=== PATIENT | female | born 1965 | race Caucasian/White ===

== ENCOUNTER 2020-12-12 15:13 | Outpatient (CLI) | payer BC | END 2020-12-12 15:14 | disposition home or self-care (01) | LOC: BICMRI 15:13 | PROVIDERS: ATTEND Nurse Practitioner Family | DX: M54.12 Radiculopathy, cervical region (principal); M48.02 Spinal stenosis, cervical region; G95.89 Other specified diseases of spinal cord | CPT/HCPCS: 72141 ==

== ENCOUNTER 2020-12-19 12:09 | Outpatient (CLI) | payer BC ==
[2020-12-20 11:13] LABS: SARS-CoV-2 PCR by NAA Not Detected (NotDetected)
== END 2020-12-19 12:10 | disposition home or self-care (01) ==
LOC: LABBT 12:09
PROVIDERS: ATTEND Internal Medicine Gastroenterology
DX: Z20.822 Contact with and (suspected) exposure to COVID-19 (principal)
CPT/HCPCS: U0003; U0005

== ENCOUNTER → 2020-12-22 | Day surgery (SDC) | payer BC ==
[2020-12-21 08:21] VITALS: BMI 31.7
[~2020-12-22] MED LIST: Fentanyl 100 MCG/2 ML VIAL ONE; Lidocaine 1% PF 5 ML VIAL ONE; Midazolam HCl 2 mg/2 ml Vial ONE; Sodium Bicarbonate 2.5 MEQ/5 ML VIAL ONE
[2020-12-22 07:48] LABS: #Basophils 0.1 thou/uL (0.0-0.2); #Eosinphils 0.5 thou/uL (0.0-0.7); #Lymphocytes 2.7 thou/uL (1.20-3.40); #Monocytes 0.5 thou/uL (0.11-0.59); #Neutrophils 3.6 thou/uL (1.40-6.50); %Basophils 0.8 % (0.0-1.0); %Eosinophils 6.7 % (0.0-10.0); %Lymphocytes 36.9 % (21.0-51.0); %Monocytes 7.1 % (0.0-10.0); %Neutrophils 48.5 % (42.0-75.0); Hemoglobin 14.2 g/dL (12.0-16.0); Mean Corpuscular HGB CONC 32.8 g/dL (32.0-36.0); Mean Corpuscular Hemoglobin 29.5 pg (27.0-31.0); Mean Corpuscular Volume 90.1 fL (78.0-98.0); Mean Platelet Volume 7.4 fL (7.4-10.4); Platelet Count 393 thou/uL (130-400); RBC Distribution Width 12.7 % (11.5-14.5); Red Blood Cell (RBC) Count 4.81 mill/uL (4.20-5.40); White Blood Cell (WBC) Count 7.4 thou/uL (4.8-10.8)
[2020-12-22 08:12] LABS: INR-International Normal Ratio 0.9; PTT 39.5 sec (22.9-36.1); Prothrombin Time 12.7 sec (12.0-14.7)
[2020-12-22 10:43] VITALS: BP 139/92; TEMP 98.1
== END ==
LOC: ULT 07:39
PROVIDERS: ATTEND Internal Medicine Gastroenterology
PROC: 0FD03ZX Extraction of Liver, Percutaneous Approach, Diagnostic (ICD-10-PCS; principal; 2020-12-22)
DX: K76.0 Fatty (change of) liver, not elsewhere classified (principal); K75.3 Granulomatous hepatitis, not elsewhere classified; K83.1 Obstruction of bile duct; Z79.82 Long term (current) use of aspirin; Z79.899 Other long term (current) drug therapy; Z88.0 Allergy status to penicillin; Z88.1 Allergy status to other antibiotic agents
CPT/HCPCS: 47000; 76942; 85025; 85610; 85730; 88307; 88312; 88313; J2250; J3010

== ENCOUNTER 2021-02-09 13:37 | Outpatient (CLI) | payer BC | END 2021-02-09 13:38 | disposition home or self-care (01) | LOC: BICRAD 13:37 | PROVIDERS: ATTEND Anesthesiology Pain Medicine | DX: M50.023 Cervical disc disorder at C6-C7 level with myelopathy (principal); M48.02 Spinal stenosis, cervical region | CPT/HCPCS: 72052 ==

== ENCOUNTER 2021-12-13 10:09 | Outpatient (CLI) | payer BC | END 2021-12-13 10:10 | disposition home or self-care (01) | LOC: SCSMRI 10:09 | PROVIDERS: ATTEND Nurse Practitioner Family | DX: M54.14 Radiculopathy, thoracic region (principal) | CPT/HCPCS: 72146 ==

== ENCOUNTER 2022-08-29 14:05 | Outpatient (CLI) | payer BC ==
[2022-08-29 14:55] LABS: #Basophils 0.1 10x3/uL (0.0-0.2); #Eosinphils 0.2 10x3/uL (0.0-0.5); #Monocytes 0.7 10x3/uL (0.0-1.1); #Neutrophils 4.5 10x3/uL (1.5-8.4); %Basophils 0.7 % (0.0-2.0); %Lymphocytes 40.3 % (18.0-47.0); %Monocytes 7.6 % (0.0-10.0); %Neutrophils 49.1 % (40.0-75.0); Hemoglobin 14.1 g/dL (12.0-15.5); Mean Corpuscular HGB CONC 32.1 g/dL (32.0-36.0); Mean Corpuscular Hemoglobin 29.7 pg (27.0-33.0); Mean Corpuscular Volume 92.4 fl (81.6-98.3); Mean Platelet Volume 10.6 fl (7.4-10.4); Platelet Count 312 10x3/uL (150-450); RBC Distribution Width 14.3 % (11.5-14.5); Red Blood Cell (RBC) Count 4.75 10x6/uL (3.90-5.03); White Blood Cell (WBC) Count 9.2 10x3/uL (3.5-10.5)
== END 2022-08-29 14:06 | disposition home or self-care (01) ==
LOC: LABBT 14:05
PROVIDERS: ATTEND Orthopaedic Surgery Hand Surgery
DX: Z01.812 Encounter for preprocedural laboratory examination (principal); S62.630A Displaced fracture of distal phalanx of right index finger, initial encounter for closed fracture
CPT/HCPCS: 85025

== ENCOUNTER 2022-11-01 12:09 | Outpatient (CLI) | payer BC | END 2022-11-01 12:10 | disposition home or self-care (01) | LOC: ULT 12:09 | PROVIDERS: ATTEND Internal Medicine Gastroenterology | DX: K74.3 Primary biliary cirrhosis (principal) | CPT/HCPCS: 76705 ==

== ENCOUNTER 2022-11-01 13:08 | Outpatient (CLI) | payer BC | END 2022-11-01 13:09 | disposition home or self-care (01) | LOC: BICMAMMO 13:08 | PROVIDERS: ATTEND Physician Assistant Medical | DX: Z13.820 Encounter for screening for osteoporosis (principal); K74.3 Primary biliary cirrhosis; M85.89 Other specified disorders of bone density and structure, multiple sites | CPT/HCPCS: 77080 ==